=== PATIENT | female | born 1985 ===

== ENCOUNTER 2017-07-01 10:48 | Emergency (ER) | payer BC ==
[2017-07-01 11:01] VITALS: BP 115/69
--- NOTE | 2017-07-01 11:08 | UC ---
Ear Complaint HPI - HPI Summary HPI Summary: L ear pain since last pm. no uri, drainage or injury - History of Current Complaint Chief Complaint: UCEar Stated Complaint: EAR COMPLAINT Time Seen by Provider: 07/01/17 11:02 Hx Obtained From: Patient Hx Last Menstrual Period: microgestion pill Onset/Duration: Gradual Onset Pain Intensity: 5 Aggravating Factors: Other Alleviating Factors: Nothing Associated Signs/Symptoms: Negative: Discharge, Hearing Loss, Foreign Body Sensation, Trauma to Ear, Swelling @ - Allergies/Home Medications Allergies/Adverse Reactions: Allergies Allergy/AdvReac Type Severity Reaction Status Date / Time erythromycin base Allergy Unknown uncertain Verified 07/01/17 11:02 of reaction' codeine AdvReac Severe headaches, Verified 07/01/17 11:02 vomiting Home Medications: Home Medications Norethindrone AC-Eth Estradiol [Microgestin 02/28 1-20 mg-Mcg] 1 tab PO 07/01/17 [History Confirmed 07/01/17] Sertraline* [Zoloft*] 25 mg PO DAILY 07/01/17 [History Confirmed 07/01/17] PMH/Surg Hx/FS Hx/Imm Hx Psychological History: Anxiety - Surgical History Surgical History: None - Family History Known Family History: Positive: None - Social History Occupation: Employed Full-time Lives: With Family Alcohol Use: None Substance Use Type: None Smoking Status (MU): Former Smoker Review of Systems Constitutional: Negative Skin: Negative Eyes: Negative ENT: Ear Ache - L Respiratory: Negative Cardiovascular: Negative Gastrointestinal: Negative Genitourinary: Negative Motor: Negative Neurovascular: Negative Musculoskeletal: Negative Neurological: Negative Psychological: Negative Is Patient Immunocompromised?: No All Other Systems Reviewed And Are Negative: Yes Physical Exam Triage Information Reviewed: Yes Appearance: Well-Appearing Vital Signs: Initial Vital Signs Temp 98.4 F 07/01/17 10:57 Pulse 62 07/01/17 10:57 Resp 18 07/01/17 10:57 BP 115/69 07/01/17 10:57 Pulse Ox 100 07/01/17 10:57 Vital Signs Reviewed: Yes Eyes: Positive: Conjunctiva Clear ENT: Positive: Pharynx normal, TMs normal, Other - R canal clear. L canal pain with pressure to tragus and auricular tug. Also pain with otoscope exam. No exudate. No auricular adenopathy. No facial rash.. Negative: Nasal congestion, Nasal drainage Neck: Positive: Supple, Nontender, No Lymphadenopathy Respiratory: Positive: Lungs clear, Normal breath sounds Cardiovascular: Positive: RRR, No Murmur Abdomen Description: Positive: Nontender, No Organomegaly, Soft Bowel Sounds: Positive: Present Musculoskeletal: Positive: ROM Intact Neurological: Positive: Alert Psychological: Positive: Age Appropriate Behavior Skin Exam: Normal Ear Complaint Course/Dx - Course Course Of Treatment: isolated pain to L ear canal thus will cover for OE and pain. no sign of shingles. need for close f/u and recheck stressed. - Differential Dx/Diagnosis Provider Diagnoses: L otalgia. Early L OE Discharge - Sign-Out/Discharge Documenting (check all that apply): Discharge/Admit/Transfer - Discharge Plan Condition: Stable Disposition: HOME Prescriptions: Ciproflox/Dexameth OTIC.SUSP* [Ciprodex OTIC.SUSP*] 4 drop .SEE ORDER BID #1 btl Naproxen [Naprosyn 500 mg tab] 500 mg PO BID #10 tablet Patient Education Materials: Otitis Externa (ED), Earache (ED) Referrals: Michael Christopher [Primary Care Provider] - 5 Days - Billing Disposition and Condition Condition: STABLE Disposition: HOME
== END 2017-07-01 11:16 | disposition home or self-care (01) ==
LOC: UCCORT 10:48
DX: H60.92 Unspecified otitis externa, left ear (principal); H92.02 Otalgia, left ear; F41.9 Anxiety disorder, unspecified; Z88.1 Allergy status to other antibiotic agents; Z88.8 Allergy status to other drugs, medicaments and biological substances; Z79.899 Other long term (current) drug therapy; Z87.891 Personal history of nicotine dependence
CPT/HCPCS: 99212; G0463

== ENCOUNTER 2018-12-08 10:29 | Emergency (ER) | payer BC ==
[2018-12-08 10:57] VITALS: BP 123/71
--- NOTE | 2018-12-08 11:27 | UC ---
Throat Pain/Nasal [place] HPI - HPI Summary HPI Summary: 33-year-old woman comes in with a chief complaint of runny nose sore throat for 3 days. She has had some rhinorrhea. Sore throats much worse today. Hurts to swallow. She also has pain in her left ear. No recent fevers measured. She has tried some throat lozenges but are not helping with the sore throat. No complaint of any shortness of breath or difficulty breathing. - History of Current Complaint Chief Complaint: UCRespiratory Stated Complaint: SINUS /EAR PRESSURE Time Seen by Provider: 12/08/18 11:13 Hx Last Menstrual Period: 3 years ago; on bcp Pain Intensity: 6 - Allergies/Home Medications Allergies/Adverse Reactions: Allergies Allergy/AdvReac Type Severity Reaction Status Date / Time erythromycin base Allergy Unknown Unknown Verified 12/08/18 10:54 Reaction Details codeine AdvReac Severe headaches, Verified 12/08/18 10:54 vomiting PMH/Surg Hx/FS Hx/Imm Hx Previously Healthy: Yes - Surgical History Surgical History: None - Family History Known Family History: Positive: None - Social History Alcohol Use: None Substance Use Type: None Smoking Status (MU): Former Smoker Review of Systems All Other Systems Reviewed And Are Negative: Yes Constitutional: Positive: Other - SEE HPI Skin: Positive: Negative Eyes: Positive: Negative ENT: Positive: Sore Throat, Ear Ache, Nasal Discharge, Sinus Congestion, Sinus Pain/Tenderness Respiratory: Positive: Cough Cardiovascular: Positive: Negative Gastrointestinal: Positive: Negative Motor: Positive: Negative Neurovascular: Positive: Negative Musculoskeletal: Positive: Negative Neurological: Positive: Negative Psychological: Positive: Negative Is Patient Immunocompromised?: No Physical Exam Triage Information Reviewed: Yes Appearance: No Pain Distress, Well-Nourished, Ill-Appearing - MILD Vital Signs: Initial Vital Signs Temp 98.4 F 12/08/18 10:54 Pulse 72 12/08/18 10:54 Resp 16 12/08/18 10:54 BP 123/71 12/08/18 10:54 Pulse Ox 100 12/08/18 10:54 Vital Signs Reviewed: Yes Eye Exam: Normal Eyes: Positive: Conjunctiva Clear ENT: Positive: Pharyngeal erythema, Nasal congestion, Nasal drainage, TMs normal , Tonsillar swelling - B/L 2+. No peritonsillar abscess Appreciated at this time., Sinus tenderness, Uvula midline. Negative: Muffled voice, Hoarse voice Neck: Positive: Supple Respiratory: Positive: Lungs clear, Normal breath sounds, No respiratory distress Cardiovascular: Positive: RRR Musculoskeletal: Positive: Strength Intact, ROM Intact Neurological: Positive: Alert, Muscle Tone Normal Psychological: Positive: Age Appropriate Behavior Skin Exam: Normal Throat Pain/Nasal Course/Dx - Course Course Of Treatment: DISCUSSED VIRAL VERSES BACTERIAL INFECTIONS AND THE ROLE OF ANTIBIOTICS. THE PATIENT PREFERS TO BE ON ANTIBIOTICS AT THIS TIME. - Differential Dx/Diagnosis Provider Diagnosis: Upper respiratory infection Discharge ED - Sign-Out/Discharge Documenting (check all that apply): Patient Departure All imaging exams completed and their final reports reviewed: No Studies - Discharge Plan Condition: Stable Disposition: HOME Prescriptions: Amoxicillin PO (*) [Amoxicillin 875 MG (*)] 875 mg PO BID #20 tab Fluticasone NASAL SPRAY 50MCG* [Flonase NASAL SPRAY 50MCG*] 2 spray BOTH NARES DAILY #1 btl Patient Education Materials: Upper Respiratory Infection (ED) Forms: *Work Release Referrals: Michael Christopher [Primary Care Provider] - Additional Instructions: FOLLOW UP WITH YOUR DOCTOR IF NOT COMPLETELY IMPROVED. GET REEVALUATED SOONER IF NOT IMPROVING OR YOUR CONDITION WORSENS OR ANY QUESTIONS OR CONCERNS. - Billing Disposition and Condition Condition: STABLE Disposition: Home
== END 2018-12-08 11:47 | disposition home or self-care (01) ==
LOC: UCCORT 10:29
DX: J06.9 Acute upper respiratory infection, unspecified (principal); J34.89 Other specified disorders of nose and nasal sinuses; Z88.1 Allergy status to other antibiotic agents; Z88.5 Allergy status to narcotic agent; Z87.891 Personal history of nicotine dependence
CPT/HCPCS: 87651; 99212; G0463

== ENCOUNTER 2019-03-29 14:43 | Emergency (ER) | payer BC ==
[2019-03-29 15:02] VITALS: BP 133/67
--- NOTE | 2019-03-29 15:12 | UC ---
Ear Complaint HPI - HPI Summary HPI Summary: 34-year-old female who has had head congestion and ear pain for the past 3 weeks however the past 4 days it has worsened with sinus pressure, postnasal drainage and yellow nasal coryza. - History of Current Complaint Chief Complaint: UCEar Stated Complaint: EAR PAIN Time Seen by Provider: 03/29/19 15:09 Hx Obtained From: Patient Hx Last Menstrual Period: pt does not get period r/t control she is on ?: No Onset/Duration: Gradual Onset Severity Initially: Mild Severity Currently: Moderate Pain Intensity: 6 Aggravating Factors: Nothing Alleviating Factors: Nothing Associated Signs/Symptoms: Positive: URI Symptoms - Allergies/Home Medications Allergies/Adverse Reactions: Allergies Allergy/AdvReac Type Severity Reaction Status Date / Time erythromycin base Allergy Unknown Unknown Verified 03/29/19 14:57 Reaction Details codeine AdvReac Severe headaches, Verified 03/29/19 14:57 vomiting Home Medications: Home Medications hydrOXYzine HCL TAB* [Atarax 10 MG TAB*] 10 mg PO QID PRN 03/29/19 [History Confirmed 03/29/19] PMH/Surg Hx/FS Hx/Imm Hx Previously Healthy: Yes - Surgical History Surgical History: None - Family History Known Family History: Positive: None - Social History Lives: With Family Alcohol Use: None Substance Use Type: None Smoking Status (MU): Never Smoked Tobacco Review of Systems All Other Systems Reviewed And Are Negative: Yes ENT: Positive: Nasal Discharge, Sinus Congestion, Sinus Pain/Tenderness Is Patient Immunocompromised?: No Physical Exam Triage Information Reviewed: Yes Appearance: Well-Appearing, No Pain Distress, Well-Nourished Vital Signs: Initial Vital Signs Temp 98 F 03/29/19 14:58 Pulse 69 03/29/19 14:58 Resp 17 03/29/19 14:58 BP 133/67 03/29/19 14:58 Pulse Ox 98 03/29/19 14:58 Vital Signs Reviewed: Yes Eyes: Positive: Conjunctiva Clear ENT: Positive: Pharynx normal - Yellow postnasal drainage, Nasal congestion, Nasal drainage - Yellow nasal coryza, TMs normal, Sinus tenderness - Tender over the maxillary and frontal sinuses., Uvula midline Neck: Positive: Supple, Nontender, No Lymphadenopathy Respiratory: Positive: Lungs clear, Normal breath sounds, No respiratory distress, No accessory muscle use Cardiovascular: Positive: RRR, No Murmur, Pulses Normal, Brisk Capillary Refill Musculoskeletal Exam: Normal Neurological Exam: Normal Psychological Exam: Normal Skin Exam: Normal Ear Complaint Course/Dx - Course Course Of Treatment: The patient is comfortable here. I'm going to treat her for a sinus infection and she is to follow-up with her primary care provider if no improvement in 5-7 days. - Differential Dx/Diagnosis Provider Diagnosis: Sinusitis Discharge ED - Sign-Out/Discharge Documenting (check all that apply): Patient Departure All imaging exams completed and their final reports reviewed: No Studies - Discharge Plan Condition: Good Disposition: HOME Prescriptions: Amoxicillin PO (*) [Amoxicillin 875 MG (*)] 875 mg PO BID 10 Days #20 tab Patient Education Materials: Sinusitis (ED) Referrals: Mcihael Christopher [Primary Care Provider] - Additional Instructions: Increase fluids, [id number] cold medicines as directed, follow-up with your primary care provider if no improvement in 5-7 days. - Billing Disposition and Condition Condition: GOOD Disposition: Home - Attestation Statements Provider Attestation: This patient was not seen by me. I was available for consult. Chart reviewed. SHITAL
== END 2019-03-29 15:19 | disposition home or self-care (01) ==
LOC: UCCORT 14:43
DX: J32.9 Chronic sinusitis, unspecified (principal); Z88.1 Allergy status to other antibiotic agents; Z88.5 Allergy status to narcotic agent
CPT/HCPCS: 99212; G0463